=== PATIENT | female | born 1950 | race Caucasian/White ===

== ENCOUNTER 2018-12-08 08:00 | Outpatient (CLI) | payer OTHER ==
[~2018-12-08] VITALS: Ht 162.6 cm; Wt 60.8 kg
[~2018-12-08 08:00] MED LIST: CRESTOR10 MG PO; TENORMIN50 MG PO; WELLBUTRIN SR150 MG PO; ZESTRIL10 MG PO
[2018-12-08] MEDS ORDERED: METOPROLOL TART50 MG PO (09:54)
[2018-12-08] MEDS ORDERED: BENADRYL25 MG PO (09:55)
[2018-12-08] MEDS ORDERED: CARDURA2 MG PO (09:55)
[2018-12-08 10:57] LABS: HEMATOCRIT 41.6 % (36.0-48.0); HEMOGLOBIN 13.8 g/dL (12-16); MCH 31.3 pg (26.0-34.0); MCHC 33.2 g/dL (31.0-37.0); MCV 94.3 fL (80.0-100.0); MEAN PLATELET VOLUME 10.7 fL (7.4-10.4); RBC 4.41 10x6/uL (4.00-5.40); RDW 13.4 % (11.5-14.5); WBC 5.7 10x3/uL (4.8-10.8)
[2018-12-10 09:55] VITALS: BP 137/77; Ht 162.6 cm; Wt 60.8 kg
== END 2018-12-08 08:01 | disposition home or self-care (01) ==
LOC: D.OPS 08:00 → EDSTATUS 12-10 09:45 → D.OPS 12-10 09:45 → D.PAN 12-10 09:45 → D.OPS 12-10 10:45
PROVIDERS: Anesthesiology; ATTEND Urology
DX: N32.89 Other specified disorders of bladder (principal); Z01.812 Encounter for preprocedural laboratory examination; Z53.09 Procedure and treatment not carried out because of other contraindication

== ENCOUNTER 2019-01-12 05:17 | Day surgery (SDC) | payer OTHER ==
[~2019-01-12 05:17] MED LIST changes: +BENADRYL25 MG PO; +CARDURA2 MG PO; +METOPROLOL TART50 MG PO
[2019-01-12 06:59] VITALS: BP 166/73; BMI 23.0
[2019-01-12 07:02] LABS: HEMATOCRIT 37.2 % (36.0-48.0); HEMOGLOBIN 12.4 g/dL (12-16); MCH 31.3 pg (26.0-34.0); MCHC 33.3 g/dL (31.0-37.0); MCV 93.9 fL (80.0-100.0); RBC 3.96 10x6/uL (4.00-5.40); RDW 13.6 % (11.5-14.5); WBC 5.9 10x3/uL (4.8-10.8)
--- NOTE | 2019-01-12 11:25 | NUR ---
[address] MOSELEY PRIOR TO PT.'S RETURN TO ROOM. SPOKE WITH PT.'S . Alon HUYNH R.N.
--- NOTE | 2019-01-12 12:23 | OP ---
PATIENT NAME: RAYRAY GUTIERREZ MEDICAL RECORD: [id number] :49 [facility] DATE: SURGEON: PAOLO MOSELEY MD DATE OF OPERATION: 01/12/2019 SURGEON: Paolo Moseley MD ANESTHESIA: General anesthesia by Sameer Mustafa CRNA. DIAGNOSES: Cystocele, [place]-Walker grade III; rectocele, [place]-Walker grade II. PROCEDURE: Cystoscopy, cystocele repair with Coloplast axis, cadaveric dermis 8 x 12 cm sheet, rectocele repair by levator ani muscle plication. FINDINGS: On cystoscopy, no bladder tumors, no bladder injury. ESTIMATED BLOOD LOSS: 50 mL. CLINICAL HISTORY: This is a 68-year-old female, who is status post hysterectomy. She has a symptomatic grade III cystocele and problems emptying her rectum from a grade II rectocele. She wished to have the cystocele and rectocele repaired. She does not have any stress urinary incontinence symptoms and I did not see any stress urinary incontinence upon reducing the cystocele and having her strain. She initially had given consent to a cystocele repair with mesh. Subsequently, the FDA removed cystocele vaginal mesh product off the market. We are using cadaveric dermis today. SHE IS ALLERGIC TO THIMEROSAL, PENICILLIN, NEOMYCIN AND AZITHROMYCIN. She was given Levaquin IV precision lens centerer and edger to the OR today. DESCRIPTION OF PROCEDURE: The patient was given induction of general anesthesia. She was then shaved, prepped, draped and placed in dorsal lithotomy position. A weighted speculum was used to hold the posterior vaginal wall down. A Sanchez catheter was put into the bladder and put to bag drainage. The labia majora were retracted laterally using stay sutures of #2 nylon. These were anchored to the medial thighs. The anterior vaginal wall was infiltrated with Pitressin solution for hydrodistention. Twenty units of Pitressin was dissolved in 100 mL of injectable normal saline. Once the anterior vaginal wall had been infiltrated. A transverse incision was made at the level of the bladder neck. Metzenbaum scissors were then used to dissect the vaginal mucosa from the undersurface of the bladder. We went through the pubocervical fascia on each side and anteriorly we entered the space of Retzius and cleared off the obturator membrane on each side. Posteriorly, we entered the presacral space and cleared the sacrospinous ligament including its attachment to the ischial spine. Four Capio suspensory sutures of 2-0 Prolene were then placed. The 2 posterior ones went through the sacrospinous ligament 1 cm medial to the ischial spine. The reason for going medial to the spine is to avoid hitting the internal pudendal arteries and pudendal nerves. The 2 anterior ones were placed in Soto's ligament near the superior pubic ramus. We then measured the distance from the dissection from the level of the bladder neck to the vaginal apex. This was 6 cm. The distance between the 2 ischial spines is about 12 cm. An 8 x 12 sheet of cadaveric dermis was then marked out so that the midpoint would have an arch cut out of it and the total depth of the arch would be 6 cm. The graft was then hydrated in saline and gentamicin solution. The 2 posterior graft arms at their respective suspensory sutures were passed through. They were then tied down to the sacrospinous ligament level. The 2 anterior graft OPERATIVE REPORT [id number] RAYRAY GUTIERREZ arms had the anterior graft sutures placed through their respective coronaries. They were then tied down to bring the anterior portion of the graft to the Soto's ligament. This resulted in good reduction of the cystocele. Prior to tying down the graft, we had performed cystoscopy and this showed no bladder injury. The wound was then irrigated out using normal saline. The transverse incision was closed using running 4-0 Monocryl. We then turned our attention to the posterior wall for the rectocele repair. The weighted speculum was removed. The posterior vaginal wall was infiltrated using Pitressin solution. This was for hydrodistention. An elliptical area was marked out and excised in the distal midline of the posterior vaginal wall. The tissue within the ellipse was removed entirely using Metzenbaum scissors. We then dissected the posterior vaginal wall in the plane between the rectum and the posterior vaginal wall with Metzenbaum scissors. The dissection was carried laterally on either side of the rectum where we encountered the levator ani muscles here. Horizontal mattress sutures of 2-0 Prolene were passed using a Capio suture auto driver. These were passed through using a same bullet on each side. Then, we were able to tie the sutures down to create a horizontal mattress repair as the 2 levator ani muscles from each side would be brought together into the midline to reduce the rectocele. A total of 4 of these sutures were used. The rectocele was then nicely reduced by a shelf of muscle. The vaginal wall incision was closed using running 4-0 Monocryl. The Sanchez catheter was then removed. A vaginal packing consisting of 2-inch Kerlix infiltrated with estrogen cream was placed into the vagina. This will be removed prior to the patient going home today. If she is unable to void, she will go home with a Sanchez catheter also. I will see her in a few days' time to check on her voiding symptoms and to check a postvoid residual. TRANSINT:[id number] Voice Confirmation ID: [id number] DOCUMENT ID: [id number] PAOLO MOSELEY MD at 1223 CC: [id number] DICTATION DATE: 01/12/19 1043 AIR LIFT OPERATOR: 01/12/19 1213 PRE [facility] [address] [id number]
--- NOTE | 2019-01-12 13:15 | NUR ---
1139 1 NORCO 7.5/325MG PO FOR COMPLAINTS OF VAGINAL/RECTAL PRESSURE PAIN. RANKS PAIN 02/10. Alon HUYNH R.N.
--- NOTE | 2019-01-12 18:47 | NUR ---
1530 RECIEVED REPORT FROM RAJAT HUMPHRIES. PT BLADDER SCAN 361ML PT DRANK 2 CUPS OF COFFEE AND LARGE WATER. ATTEMPTED TO URINATE ON TOILET SEVERAL TIMES AND WAS UNABLE. 1730 PT UNABLE TO URINATE AND BLADDER APPEARS DISTENDED. CERVANTES CATH INSERTED AND RECIEVED 300 ML OF URINE. 1830 IV REMOVED AND PRESSURE HELD AND DRESSING APPLIED 1840 PT DC HOME IN .
== END 2019-01-12 18:40 | disposition home or self-care (01) ==
LOC: D.OPS 05:17 → D.PAN 10:15 → D.OPS 11:05 → D.PAN 11:45 → D.OPS 12:00
PROVIDERS: Anesthesiology; ATTEND Urology
DX: N81.11 Cystocele, midline (principal); N81.6 Rectocele; Z01.812 Encounter for preprocedural laboratory examination

== ENCOUNTER → 2019-02-17 20:27 | Outpatient (CLI) | payer OTHER | END | disposition home or self-care (01) | LOC: D.LABREF 20:27 | PROVIDERS: ATTEND Urology | DX: R30.0 Dysuria (principal); R35.0 Frequency of micturition ==

== ENCOUNTER → 2019-06-15 12:33 | Outpatient (CLI) | payer MEDICARE | END | disposition home or self-care (01) | LOC: D.MRI 12:33 | PROVIDERS: ATTEND Family Medicine | DX: M13.861 Other specified arthritis, right knee (principal) ==

== ENCOUNTER → 2020-02-24 10:21 | Outpatient (CLI) | payer MEDICARE | END | disposition home or self-care (01) | LOC: D.MRI 10:21 | PROVIDERS: ATTEND Orthopaedic Surgery | DX: M54.16 Radiculopathy, lumbar region (principal) ==